=== PATIENT | female | born 1985 | race Caucasian/White ===

== ENCOUNTER 2017-01-13 14:03 | Emergency (ER) | payer SELFPAY ==
[~2017-01-13] VITALS: Ht 172.7 cm; Wt 62.0 kg
[~2017-01-13 14:03] MED LIST: AMOX/K CLAV875 M1 PO; AMOXICILLIN500 MG OR; CIPRO500 MG OR; CONCEPT OB PO; FLUZONE SPLT1 M1 IM; INTEGRA F PO; KEFLEX500 MG OR; LORTAB 5 OR; MIRENA IU; NAPROSYN500 MG OR; NO; NO HOME MEDS; PENICILLN VK250 MG PO; PENICILLN VK500 M1 OR; PENICILLN VK500 MG OR; PERCOCET 5/325M1 TAB OR; ROBITUSSIN AC10 ML OR; TUBERSOL5 MG/0.1 M ID; ZOLOFT100 MG; ZOLOFT100 MG OR
[2017-01-13 16:15] VITALS: BP 117/76
[2017-01-13 16:38] LABS: HEMATOCRIT 44.8 % (37.0-47.0); HEMOGLOBIN 15.1 g/dl (12.0-16.0); IMMATURE GRANULOCYTES 0.2 % (0.0-1.0); MEAN CELL VOLUME 97.4 fL CALC (80.0-100.0); MEAN CORPUSCULAR HGB 32.8 pG CALC (26.0-32.0); MEAN CORPUSCULAR HGB CONC 33.7 g/L CALC (32.0-36.0); NEUT# 5.97 thou/uL (2.00-7.15); RED BLOOD COUNT 4.6 mill/uL (4.20-5.60); RED CELL DISTRI WIDTH 12.3 % (11.5-15.5)
[2017-01-13 16:40] LABS: URINE BILIRUBIN - DIPSTICK NEGATIVE (NEGATIVE); URINE BLOOD DIPSTICK NEGATIVE (NEGATIVE); URINE CLARITY CLEAR; URINE COLOR YELLOW; URINE GLUCOSE - DIPSTICK NEGATIVE (NEGATIVE); URINE KETONE NEGATIVE (NEGATIVE); URINE NITRITE - DIPSTICK NEGATIVE (Negative); URINE PH 6.5 (4.5-8.0); URINE PROTEIN - DIPSTICK NEGATIVE (NEG-TRACE); URINE SPECIFIC GRAVITY 1.015; URINE UROBILINOGEN - DIPSTICK 0.2 E.U./dL (0.2)
[2017-01-13 16:42] LABS: URINE LEUK ESTERASE SMALL (NEGATIVE)
[2017-01-13 16:44] LABS: BARBITURATES NEGATIVE (NEGATIVE); COCAINE NEGATIVE (NEGATIVE); METHADONE NEGATIVE (NEGATIVE); OXCYCODONE NEGATIVE (NEGATIVE); TETRAHYDROCANNABIONOL POSITIVE (NEGATIVE); TRICYLIC ANTIDEPRESSANTS NEGATIVE (NEGATIVE)
[2017-01-13 16:50] LABS: URINE RBC 0-2 RBC/hpf (0-5); URINE SQUAMOUS EPITHELIAL CELL FEW EPI/hpf (0-FEW)
[2017-01-13 16:52] LABS: ALBUMIN 4.1 g/dL (3.2-5.0); ALKALINE PHOSPHATASE 38 u/l (38-126); AMYLASE 102 u/l (30-110); ANION GAP 12 (6-22 (CALC)); BILIRUBIN, TOTAL 0.8 mg/dL (0.0-1.4); BUN 9 mg/dL (7-17); BUN/CREATININE RATIO 13 (12-20 (CALC)); CALCIUM 9.1 mg/dL (8.4-10.2); CARBON DIOXIDE 25 mmol/l (22-30); CHLORIDE 106 mmol/l (95-108); CREATININE 0.7 mg/dL (0.5-1.0); GFR > 60 ML/MIN (>=60 (CALC)); GFR FOR AFR.AMER. > 60 ML/MIN (>=60 (CALC)); GLUCOSE 78 mg/dL (65-105); LIPASE 82 u/l (23-300); POTASSIUM 4.2 mmol/l (3.5-5.1); SGOT/AST 19 u/l (14-36); SGPT/ALT 33 u/l (9-52); SODIUM 139 mmol/l (137-146); TOTAL PROTEIN 6.7 g/dL (6.3-8.2)
[2017-01-13 17:01] LABS: MYOGLOBIN 29 ng/mL (0 - 62)
[2017-01-13] MEDS ORDERED: CEPHALEXIN500 MG PO (17:56)
== END 2017-01-13 18:07 | disposition home or self-care (01) | DRG 392 ==
LOC: ED 14:03
PROVIDERS: Emergency Medicine
DX: K52.9 Noninfective gastroenteritis and colitis, unspecified (principal); N39.0 Urinary tract infection, site not specified; F32.9 Major depressive disorder, single episode, unspecified; F17.210 Nicotine dependence, cigarettes, uncomplicated; F12.90 Cannabis use, unspecified, uncomplicated; Z97.5 Presence of (intrauterine) contraceptive device
CPT/HCPCS: Q9967